=== PATIENT | male | born 1980 | race Caucasian/White ===

== ENCOUNTER 2024-05-20 22:02 | Emergency (ER) | payer SELFPAY ==
[2024-05-20 22:09] VITALS: BP 133/84; PULSE 67; RESP 18; TEMP 98; BMI 47.5
[2024-05-20] MEDS ORDERED: ACETAMINOPHEN INJECTION 100 ML IVPB ONE ×2 (23:27→23:32)
[2024-05-20] MEDS: SODIUM CHLORIDE 0.9% 500 ML INFUS.BAG IV ONE (23:43)
[2024-05-20] MEDS: ACETAMINOPHEN 1000 MG/100 ML BAG IVPB ONE (23:43)
[2024-05-20 23:59] LABS: BASO % 0.5 % (0-2.0); EOS % 1.9 % (0-4.5); HEMATOCRIT 45.7 % (35.4-49); HEMOGLOBIN 15.9 GM/dL (11.7-16.9); LYMPH % 19.1 % (8-40); MCH 31.4 pg (25.7-33.7); MCHC 34.9 g/dl (32.0-35.9); MEAN CELL VOLUME 90.1 fl (80-96); MEAN PLT VOLUME 9.2 fl (7.5-11.1); MONO % 11.2 % (3.8-10.2); NEUT % 67.3 % (42.8-82.8); PLATELET COUNT 228 10^3/uL (134-434); RBC 5.07 M/mm3 (4.00-5.60); RDW 13.3 % (11.9-15.9); WHITE BLOOD COUNT 6.4 K/mm3 (4.0-10.0)
[2024-05-21 00:02] LABS: EPI CELLS 6 /uL (0-25.1); HYALINE CASTS 0 /uL (0-3.1); URINE APPEARANCE CLEAR; URINE BILIRUBIN 1+ (NEGATIVE); URINE COLOR ORANGE; URINE GLUCOSE (UA) NEGATIVE (NEGATIVE); URINE KETONE NEGATIVE (NEGATIVE); URINE LEUK ESTERASE 1+ (NEGATIVE); URINE NITRITE POSITIVE (NEGATIVE); URINE PROTEIN 1+ (NEGATIVE); URINE RBC 14 /uL (0-23.9); URINE WBC 5 /uL (0-25.8)
[2024-05-21 00:11] LABS: POTASSIUM 4.4 mmol/L (3.5-5.1)
[2024-05-21 00:13] LABS: CALCIUM 9.3 mg/dL (8.5-10.1)
[2024-05-21 00:14] LABS: ALBUMIN 4.1 g/dl (3.4-5.0); BLOOD UREA NITROGEN 17.9 mg/dL (7-18)
[2024-05-21 00:17] LABS: CREATININE 0.9 mg/dL (0.55-1.3)
[2024-05-21 00:18] LABS: BILIRUBIN,TOTAL 0.4 mg/dL (0.2-1)
[2024-05-21] MEDS ORDERED: CEFTRIAXONE 1 GM/50 ML BAG ONE (01:01)
[2024-05-21] MEDS: CEFTRIAXONE 1,000 MG in DEXTROSE 5%-WATER - 50 ML IVPB ONE (01:05)
== END 2024-05-21 02:06 | disposition home or self-care (01) ==
LOC: JER 22:02
PROC: 3E03329 Introduction of Other Anti-infective into Peripheral Vein, Percutaneous Approach (ICD-10-PCS; principal; 2024-05-20)
PROC: 3E033NZ Introduction of Analgesics, Hypnotics, Sedatives into Peripheral Vein, Percutaneous Approach (ICD-10-PCS; 2024-05-20)
DX: M54.9 Dorsalgia, unspecified (principal); R14.0 Abdominal distension (gaseous); R30.0 Dysuria; R19.7 Diarrhea, unspecified; N39.0 Urinary tract infection, site not specified
CPT/HCPCS: 36415; 80053; 81003; 85025; 87086; 99284-25; J0131